=== PATIENT | male | born 1970 | race American Indian/Alaskan Native ===

== ENCOUNTER 2022-06-14 18:31 | Inpatient (IN) | payer OTHER ==
--- NOTE | 2022-06-14 18:52 | Emergency Department Report ---
ED General Adult HPI - General Chief complaint: Neuro Symptoms/Deficit Stated complaint: STROKE Time Seen by Provider: 06/14/22 18:32 Source: patient, EMS (Verbal report received from emergency medical services. EMS documentation not available at time of chart dictation ), RN notes reviewed Mode of arrival: Stretcher Limitations: Altered Mental Status, Physical Limitation, Other (Patient is a poor historian) - History of Present Illness Initial comments: The patient was evaluated in the emergency department for symptoms described in the history of present illness. He/she was evaluated in the context of the global COVID-19 pandemic, which necessitated consideration that the patient might be at risk for infection with the virus that causes COVID-19. Institutional protocols and algorithms that pertain to the evaluation of patients at risk for COVID-19 are in a state of rapid change based on information released by regulatory bodies including the CDC and federal and state organizations. These policies and algorithms were followed during the patient's care in the emergency department. Please note that these policies, procedures and recommendations changed on a rapid basis. This is a 52-year-old gentleman. He appears to have a history of diabetes, stroke, and morbid obesity. The patient presents to the ER today with EMS with an EMS articulated complaint of possible stroke alert. As per EMS, last known well time approximately 1 hour prior to ER arrival. Stroke symptoms include confusion, slurred speech, and right upper extremity and right lower extremity weakness. EMS reports patient hyperglycemic previously, apparently glucose was greater than 600. They report Accu-Chek is 270 in the field The patient is awake. He does state that he takes blood thinning medications, but he thinks he has not taken blood thinning medications in about a week. He is not certain. He also reports that he had a stroke in the past. He does not know if he has had a stroke in the past 90 days. The patient endorses a mild headache. The patient makes no complaint of additional physical pain. The patient is confused, and a poor historian. The patient is not currently accompanied by friends or family at this time who can provide additional information or collateral history. Provided phone number for family member, [phone]. Called number, nobody answered. Patient endorsed to the consulting stroke neurologist that he occasionally has recrudescence of stroke symptoms, with high blood sugar. Accu-Chek here in the ER, is 336, performed by the nurse -: minutes(s) Location: right, upper extremity, lower extremity - Related Data Allergies Allergy/AdvReac Type Severity Reaction Status Date / Time No Known Allergies Allergy Unverified 06/14/22 20:40 ED Review of Systems ROS: Stated complaint: STROKE Other details as noted in HPI Comment: Unobtainable due to pts medical conditions Neurological: weakness, numbness, confusion ED Past Medical Hx - Past Medical History Previous Medical History?: Yes Hx CVA: Yes ED Physical Exam - General Limitations: Altered Mental Status General appearance: in no apparent distress, anxious, obese - Head Head exam: Present: atraumatic, normocephalic - Eye Eye exam: Present: normal appearance, EOMI. Absent: nystagmus - ENT ENT exam: Present: normal exam, normal orophraynx, mucous membranes moist, normal external ear exam - Neck Neck exam: Present: normal inspection, full ROM. Absent: tenderness, meningismus - Respiratory Respiratory exam: Present: normal lung sounds bilaterally. Absent: respiratory distress, rhonchi, stridor, decreased breath sounds - Cardiovascular Cardiovascular Exam: Present: regular rate, normal rhythm, normal heart sounds. Absent: bradycardia, tachycardia, irregular rhythm, systolic murmur, diastolic murmur, rubs, gallop - GI/Abdominal GI/Abdominal exam: Present: soft. Absent: distended, tenderness, guarding, rebound, rigid, pulsatile mass - Rectal Rectal exam: Present: deferred - Extremities Exam Extremities exam: Present: normal inspection, full ROM (Left arm and left leg), other (2+ pulses noted in the bilateral upper and lower extremities. There is no palpable cord. negative Homans sign. Muscular compartments are soft. The pelvis is stable.). Absent: calf tenderness - Back Exam Back exam: Present: normal inspection. Absent: tenderness, CVA tenderness (R), CVA tenderness (L), paraspinal tenderness, vertebral tenderness - Neurological Exam Neurological exam: Present: altered, motor sensory deficit, other (There is no facial droop. The tongue is midline. EOMI. 5 out of 5 strength left arm and left leg. Right upper extremity drift. Right upper extremity right lower extremity weak, 4 out of 5 strength. Sensation decreased to light touch right arm and right leg) - Psychiatric Psychiatric exam: Present: anxious - Skin Skin exam: Present: warm, dry, intact, normal color. Absent: rash ED Course Vital Signs 06/14/22 19:13 Temperature 98.7 F Pulse Rate 88 Respiratory 20 Rate Blood Pressure 134/98 Blood Pressure 134/98 [Left] O2 Sat by Pulse 97 Oximetry - Reevaluation(s) Reevaluation #1: 06/14/22 18:52 Differential diagnosis, include but not limited to: Stroke, stroke mimic, electrolyte derangement, thyroid derangement, large vessel occlusion Assessment and plan: 52-year-old gentleman presenting with symptoms concerning for acute stroke syndrome. We are trying to ascertain if patient has any contraindications to tPA. Called up listed phone #[phone]. Nobody answered. Left a voicemail for call back. At this point in time, unable to obtain clear history from patient, regarding tPA contraindications. Patient emergently and administratively consented for CT scan brain, CT angiogram head and neck. Reassess. We will also discussed with stroke neurology 06/14/22 19:03 Patient gave consent for the details of his care to be discussed with Ms. Citlali Saavedra; [phone] Ms. saavedra informs us that the patient has a confirmed stroke this past March, certainly within the past 90 days, at [facility]. The patient is therefore not a tPA candidate. Stroke neurology, Dr Fernandez, agrees that tPA is not indicated and essentially contraindicated at this time. Extensive discussion had with patient and Ms. Citlali saavedra regarding rationale for withhold tPA. They have articulated understanding. Showed no large vessel occlusion or dissection be noted on CT angiogram, admit to the hospital for acute stroke 06/14/22 21:15 CT head, CT angiogram head and neck negative for bleed, dissection, and intervene of a large vessel occlusion. Laboratory studies suggest hyperglycemia, with pseudohyponatremia. Patient resting comfortably in stretcher. Aspirin and normal saline ordered. Also discussed case with [facility]y, who advised that this patient does not meet criteria for transfer for IA intervention which I agree with. Please see consultancy note. Hospital physician, Dr. Patterson to admit to IMS - Consultations Consultation #1: 06/14/22 20:08 CT angiogram head and neck reviewed and appreciated. CT scan brain reviewed and appreciated. Occlusion not noted in M1. Ambiguity regarding subsegmental branches are reviewed and appreciated. Even at this patient had a large vessel occlusion and M3 or A2, this is typically not an intervene of the lesion. I reached out to [facility] stroke neurology, Dr Hernandez Discussed the patient's history, physical, imaging studies and clinical impression. Images are also transmitted to [facility] PACS for review. He indicates that even if the patient has a large vessel occlusion and the poorly visualized M3 or A2 branches, this is not something that is intervene able. Therefore, transfer is not recommended as anticipated. The patient will remain here for stroke work-up and treatment. ED Medical Decision Making - Lab Data Result diagrams: 06/14/22 19:19 06/14/22 19:19 Vital Signs 06/14/22 19:13 Temperature 98.7 F Pulse Rate 88 Respiratory 20 Rate Blood Pressure 134/98 Blood Pressure 134/98 [Left] O2 Sat by Pulse 97 Oximetry Lab Results 06/14/22 06/14/22 06/14/22 Range/Units 19:19 19:19 19:19 WBC 7.1 (4.5-11.0) K/mm3 RBC 5.02 (3.65-5.03) M/mm3 Hgb 14.7 (11.8-15.2) gm/dl Hct 43.9 (35.5-45.6) % MCV 88 (84-94) fl MCH 29 (28-32) pg MCHC 34 (32-34) % RDW 13.7 (13.2-15.2) % Plt Count 189 (140-440) K/mm3 Lymph % (Auto) 35.6 H (13.4-35.0) % [place] % (Auto) 7.2 (0.0-7.3) % Eos % (Auto) 1.2 (0.0-4.3) % Baso % (Auto) [employer]er Lymph # (Auto) 2.5 (1.2-5.4) K/mm3 [place] # (Auto) 0.5 (0.0-0.8) K/mm3 Eos # (Auto) 0.1 (0.0-0.4) K/mm3 Baso # (Auto) 0.1 (0.0-0.1) K/mm3 Seg Neutrophils % 55.3 (40.0-70.0) % Seg Neutrophils # 3.9 (1.8-7.7) K/mm3 PT 13.1 (12.2-14.9) Sec. INR 0.90 (0.87-1.13) APTT 29.9 (24.2-36.6) Sec. Thrombin Time 15.1 (15.1-19.6) Sec. Sodium 130 L (137-145) mmol/L Potassium 5.1 H (3.6-5.0) mmol/L Chloride 96.0 L (98-107) mmol/L Carbon Dioxide 21 L (22-30) mmol/L Anion Gap 18 mmol/L BUN 11 (9-20) mg/dL Creatinine 0.8 (0.8-1.3) mg/dL Estimated GFR > 60 ml/min BUN/Creatinine Ratio 14 % Glucose 240 H (75-100) mg/dL Calcium 9.3 (8.4-10.2) mg/dL Total Bilirubin 0.40 (0.1-1.2) mg/dL AST 26 (5-40) units/L ALT 21 (7-56) units/L Alkaline Phosphatase 139 H (35-129) units/L Total Creatine Kinase 309 H (55-170) units/L CK-MB (CK-2) 2.8 (0.0-4.0) ng/mL CK-MB (CK-2) Rel Index 0.9 (0-4) Troponin T < 0.010 (0.00-0.029) ng/mL Total Protein 7.0 (6.3-8.2) g/dL Albumin 4.1 (3.9-5) g/dL Albumin/Globulin Ratio 1.4 % TSH (0.270-4.200) mlU/mL Salicylates (2.8-20.0) mg/dL Acetaminophen (10.0-30.0) ug/mL Plasma/Serum Alcohol (0-0.07) % 06/14/22 06/14/22 06/14/22 Range/Units 19:19 19:19 19:19 WBC (4.5-11.0) K/mm3 RBC (3.65-5.03) M/mm3 Hgb (11.8-15.2) gm/dl Hct (35.5-45.6) % MCV (84-94) fl MCH (28-32) pg MCHC (32-34) % RDW (13.2-15.2) % Plt Count (140-440) K/mm3 Lymph % (Auto) (13.4-35.0) % [place] % (Auto) (0.0-7.3) % Eos % (Auto) (0.0-4.3) % Baso % (Auto) Lymph # (Auto) (1.2-5.4) K/mm3 [place] # (Auto) (0.0-0.8) K/mm3 Eos # (Auto) (0.0-0.4) K/mm3 Baso # (Auto) (0.0-0.1) K/mm3 Seg Neutrophils % (40.0-70.0) % Seg Neutrophils # (1.8-7.7) K/mm3 PT (12.2-14.9) Sec. INR (0.87-1.13) APTT (24.2-36.6) Sec. Thrombin Time (15.1-19.6) Sec. Sodium (137-145) mmol/L Potassium (3.6-5.0) mmol/L Chloride (98-107) mmol/L Carbon Dioxide (22-30) mmol/L Anion Gap mmol/L BUN (9-20) mg/dL Creatinine (0.8-1.3) mg/dL Estimated GFR ml/min BUN/Creatinine Ratio % Glucose (75-100) mg/dL Calcium (8.4-10.2) mg/dL Total Bilirubin (0.1-1.2) mg/dL AST (5-40) units/L ALT (7-56) units/L Alkaline Phosphatase (35-129) units/L Total Creatine Kinase (55-170) units/L CK-MB (CK-2) (0.0-4.0) ng/mL CK-MB (CK-2) Rel Index (0-4) Troponin T (0.00-0.029) ng/mL Total Protein (6.3-8.2) g/dL Albumin (3.9-5) g/dL Albumin/Globulin Ratio % TSH 1.010 (0.270-4.200) mlU/mL Salicylates < 0.3 L (2.8-20.0) mg/dL Acetaminophen (10.0-30.0) ug/mL Plasma/Serum Alcohol < 0.01 (0-0.07) % 06/14/22 Range/Units 19:19 WBC (4.5-11.0) K/mm3 RBC (3.65-5.03) M/mm3 Hgb (11.8-15.2) gm/dl Hct (35.5-45.6) % MCV (84-94) fl MCH (28-32) pg MCHC (32-34) % RDW (13.2-15.2) % Plt Count (140-440) K/mm3 Lymph % (Auto) (13.4-35.0) % [place] % (Auto) (0.0-7.3) % Eos % (Auto) (0.0-4.3) % Baso % (Auto) Lymph # (Auto) (1.2-5.4) K/mm3 [place] # (Auto) (0.0-0.8) K/mm3 Eos # (Auto) (0.0-0.4) K/mm3 Baso # (Auto) (0.0-0.1) K/mm3 Seg Neutrophils % (40.0-70.0) % Seg Neutrophils # (1.8-7.7) K/mm3 PT (12.2-14.9) Sec. INR (0.87-1.13) APTT (24.2-36.6) Sec. Thrombin Time (15.1-19.6) Sec. Sodium (137-145) mmol/L Potassium (3.6-5.0) mmol/L Chloride (98-107) mmol/L Carbon Dioxide (22-30) mmol/L Anion Gap mmol/L BUN (9-20) mg/dL Creatinine (0.8-1.3) mg/dL Estimated GFR ml/min BUN/Creatinine Ratio % Glucose (75-100) mg/dL Calcium (8.4-10.2) mg/dL Total Bilirubin (0.1-1.2) mg/dL AST (5-40) units/L ALT (7-56) units/L Alkaline Phosphatase (35-129) units/L Total Creatine Kinase (55-170) units/L CK-MB (CK-2) (0.0-4.0) ng/mL CK-MB (CK-2) Rel Index (0-4) Troponin T (0.00-0.029) ng/mL Total Protein (6.3-8.2) g/dL Albumin (3.9-5) g/dL Albumin/Globulin Ratio % TSH (0.270-4.200) mlU/mL Salicylates (2.8-20.0) mg/dL Acetaminophen 5.0 L (10.0-30.0) ug/mL Plasma/Serum Alcohol (0-0.07) % Vital Signs 06/14/22 19:13 Temperature 98.7 F Pulse Rate 88 Respiratory 20 Rate Blood Pressure 134/98 Blood Pressure 134/98 [Left] O2 Sat by Pulse 97 Oximetry - EKG Data -: EKG Interpreted by Mn EKG shows normal: sinus rhythm Rate: normal - EKG Data When compared to previous EKG there are: previous EKG unavailable 06/14/22 19:41 The EKG is interpreted at 19: 06 Sinus rhythm, rate 89 bpm. Normal axis, normal intervals, poor R wave progression, low voltage in the lateral leads, Q waves noted in the inferior le ads. Patient denies chest pain. This is an abnormal EKG. This is not a STEMI - Radiology Data Radiology results: pending, report reviewed, image reviewed CT HEAD WITHOUT CONTRAST INDICATION / CLINICAL INFORMATION: Stroke symptoms right-sided deficits. TECHNIQUE: All CT scans at this location are performed using CT dose reduction for ALARA by means of automated exposure control. COMPARISON: None available. FINDINGS: HEMORRHAGE: No evidence of intracranial hemorrhage or extra-axial fluid collection. EXTRA-AXIAL SPACES: Cortical sulci, sylvian fissures and basilar cisterns have an unremarkable appearance. VENTRICULAR SYSTEM: The third and lateral ventricles are of normal size and configuration. CEREBRAL PARENCHYMA: No areas of abnormal brain parenchymal attenuation are identified. There is no indication of recent infarction. MIDLINE SHIFT OR HERNIATION: There is no mass effect. CEREBELLUM / BRAINSTEM: Brainstem and cerebellum have an unremarkable appearance. MIDLINE STRUCTURES:No abnormalities of the pituitary gland or pineal region are identified. INTRACRANIAL VESSELS:No abnormalities are identified on this noncontrast head CT. ORBITS: visualized portions of the orbits have an unremarkable appearance. SOFT TISSUES of HEAD: No significant abnormality. CALVARIUM: Evaluation of bone windows reveals no abnormalities. PARANASAL SINUSES / MASTOID AIR CELLS: Visualized portions of the paranasal sinuses are free from inflammatory mucosal disease. Mastoid air cells are normally pneumatized. IMPRESSION: 1. No acute intracranial abnormality. Signer Name: David Putnam MD Signed: 06/14/2022 6:36 PM Workstation Name: [email or web address] CTA neck without and with intravenous contrast material CLINICAL HISTORY: stroke sx right-sided deficit TECHNIQUE: Following acquisition of a timing bolus 0.625 mm thick contiguous axial scans were obtained from aortic arch to the skull base during rapid bolus intravenous contrast infusion. In addition to evaluation of axial source images multiplanar reconstructions were produced and reviewed for this report. 3 plane MIP reconstructions were produced and reviewed. Contrast dose report: Omnipaque 350: 100 ml, administered intravenously All CT examinations performed at this facility utilize modulated dose reduction, iterative reconstruction or weight-based dosing, as appropriate, to obtain a radiation dose which is as low as can reasonably be achieved. FINDINGS: Thoracic aorta:No abnormalities are identified along the course of the thoracic aorta..The origins of the great vessels have an unremarkable appearance. Brachiocephalic artery, left common carotid artery origin and left subclavian artery all have an unremarkable appearance. Right carotid artery:No abnormalities are seen along the course of the RCCA, at the right carotid bifurcation or along the cervical portions of the HANNAH. Left carotid artery: No abnormalities are noted along the course of the left common carotid artery, at the left carotid bifurcation or along the course of the cervical segments of the LICA. Posterior circulation:The vertebral arteries have an unremarkable appearance. Both vertebral arteries contribute to the basilar artery origin. The basilar artery has an unremarkable appearance. The degree of stenosis, if any, is determined utilizing NASCET like criteria. In this case there is no indication of hemodynamically significant stenosis at the carotid bifurcations or elsewhere. Evaluation of the nonvascular soft tissue structures reveal no abnormality. There is no indication of cervical lymphadenopathy. No abnormalities are seen along the course of the airway. Visualized portions of the parotid glands and the submandibular salivary glands have a normal appearance. Thyroid gland has a normal appearance. Evaluation of the lung apices reveals no evidence of lung nodule or infiltrate. Evaluation of the cervical spine revealed no significant abnormalities. Incidental note is made of calcification of the superior margin of the longus coli muscle just below the anterior arch of C1. IMPRESSION: 1. No indication of hemodynamically significant stenosis at the carotid bifurcations or elsewhere. CTA head with intravenous contrast CLINICAL HISTORY: stroke sx right-sided deficit TECHNIQUE: 0.625 mm thick contiguous axial scans were obtained from the skull base to the skull vertex during rapid bolus administration of intravenous contrast material. Multiplanar reconstructions were produced in the coronal and sagittal planes. In addition 3 plane MIP instructions were produced and reviewed for this report. The axial source images and reconstructed images w ere reviewed for this report. CONTRAST DOSE REPORT: Omnipaque 350: 100 ml administered intravenously. All CT scans at this location are performed using CT dose reduction for ALARA by means of automated exposure control. FINDINGS: Limitations: Patient motion artifact degrades image quality and is a limiting factor in evaluation of the M3 branches of the middle cerebral arteries and mid and distal A2 segments of the anterior cerebral arteries bilaterally. Internal carotid arteries:Gilbert, cavernous, opthalmic, clinoid and supraclinoid segments of the ICAs have an unremarkable appearance. Middle cerebral arteries:Normal and symmetrical M1 segments of the middle cerebral arteries are demonstrated. No abnormalities are seen on evaluation of the insular or opercular branches. Anterior cerebral arteries:Bilaterally symmetrical A1 segments are demonstrated. No abnormalities are seen along the course of the A2 segments or their visualized pericallosal branches. Vertebral arter ies:Bilaterally symmetrical vertebral arteries are demonstrated. Both vertebral arteries contribute to the basilar artery origin. Basilar artery:Basilar artery has an unremarkable appearance. Posterior cerebral arteries:Bilaterally symmetrical posterior cerebral arteries are identified. [place] of [place]:Not intact. see above. Dural sinuses: Dural venous sinuses are well demonstrated on this exam. There is no evidence of dural sinus thrombosis. IMPRESSION: 1. No indication of large vessel occlusion or intracranial stenosis. Signer Name: David Putnam MD Signed: 06/14/2022 6:48 PM Workstation Name: [email or web address] Critical care attestation.: If time is entered above; I have spent that time in minutes in the direct care of this critically ill patient, excluding procedure time. ED Disposition Clinical Impression: Acute ischemic stroke, Hyperglycemia, Body mass index between 30-39, adult Disposition: 09 ADMITTED INPATIENT Is pt being admited?: Yes Condition: Good - Assessment Assessment Interval: Baseline - Level of Consciousness 1a. Level of Consciousness: arousable/minor stimuli - LOC Questions 1b. LOC Questions: answers 1 question correctly - LOC Command 1c. LOC Commands: performs tasks correctly - Best Gaze 2. Best Gaze: normal - Visual 3. Visual: no visual loss - Facial Palsy 4. Facial Palsy: normal symmetrical movement - Motor Arm 5a. Motor Arm Left: no drift 5b. Motor Arm Right: drift - Motor Leg 6a. Motor Leg Left: no drift 6b. Motor Leg Right: drift - Limb Ataxia 7. Limb Ataxia: present 1 limb - Sensory 8. Sensory: mild/moderate sensory loss - Best Language 9. Best Language: mild/moderate aphasia - Dysarthria 10. Dysarthria: mild/moderate dysarthria - Extinction and Inattention 11. Extinction/Inattention: no abnormality - Scoring Total Score: 8 Stroke Severity: Moderate Stroke
--- NOTE | 2022-06-14 19:17 | Emergency Department Report ---
Blank Doc - Documentation Documentation: [facility] Consult Note # Demographics Consult Type: Acute Stroke Level 1 (0-4.5 hrs) Patient Location: Emergency Room First Name: Van Last Name: Bhupendra Date of : 1970 Age: 52 Gender: Male Facility: [facility] Time of Initial Page ( Time): 06/14/2022, 18:16 Time of Return Call ( Time): 06/14/2022, 18:16 # HPI History: hx of prior stroke, HTN, DM, no recent blood thinners. presented with slurred speech, unsteady gait, forgetfulness. Blood sugar this morning in 600s, took insulin, which brought it down to 300s and now 270. Patient notes to me that when his blood sugar is very high, he has prior stroke symptoms return. Family member confirmed that prior stroke was in march of this year. # Scores Time of exam and NIHSS (): 06/14/2022, 18:33 Level of Consciousness 1a: [0] = Alert; keenly responsive LOC Questions 1b: [0] = Answers both questions correctly LOC Commands 1c: [0] = Performs both tasks correctly Best Gaze 2: [0] = Normal Visual 3: [0] = No visual loss Facial Palsy 4: [0] = Normal symmetrical movements Motor Arm Left 5a: [0] = No drift Motor Arm Right 5b: [1] = Drift Motor Leg Left 6a: [0] = No drift Motor Leg Right 6b: [1] = Drift Limb Ataxia 7: [0] = Absent Sensory 8: [0] = Normal Best Language 9: [1] = [id number] aphasia Dysarthria 10: [0] = Normal Extinction and Inattention 11: [0] = No abnormality NIHSS Total: 3 # Data Time Head CT personally read by me (): 06/14/2022, 18:[address]: no bleed CTA Head: no large vessel occlusion preliminarily reviewed by me, please refer to radiology read for official reading CTA Neck: patent vessels preliminarily reviewed by me, please refer to radiology read for official reading # Assessment Impression: right sided weakness, aphasia hyperglycemia recent stroke in march, not a candidate for tpa. # Plan Thrombolytic/Intervention: NOT IV Thrombolysis or IA Intervention candidate Thrombolytic Dosing: IV alteplase 0.9 mg/kg, max dose 90 mg; 10% of dose given over 1 minute IVP, remaining 90% given as infusion over 1 hour Thrombolytic Exclusion (< 3 hour window): stroke within 3 months Intraarterial Exclusion: other CTA read pending Target Blood Pressure: SBP < 220 DBP < 105 Labs: CBC comprehensive metabolic panel lipid panel troponin TSH urine drug screen ua Imaging: (urgency: routine): MRI Brain without contrast Medication: aspirin 325 mg daily DVT Prophylaxis: chemical DVT prophylaxis Other: If patient has any neurological deterioration please call me back immediately I have discussed my recommendations with the referring provider Additional Recommendations: mri brain wo contrast Disposition: admit # Logistics Telemedicine: Interactive 2 way audio and visual telecommunication technology was utilized during this visit # Demographics First Name: Van Last Name: Bhupendra Facility: [facility]
--- NOTE | 2022-06-14 19:40 | Cat Scan Report ---
CT HEAD WITHOUT CONTRAST INDICATION / CLINICAL INFORMATION: Stroke symptoms right-sided deficits. TECHNIQUE: All CT scans at this location are performed using CT dose reduction for ALARA by means of automated e xposure control. COMPARISON: None available. FINDINGS: HEMORRHAGE: No evidence of intracranial hemorrhage or extra-axial fluid collection. EXTRA-AXIAL SPACES: Cortical sulci, sylvian fissures and basilar cisterns have an unremarkable appear ance. VENTRICULAR SYSTEM: The third and lateral ventricles are of normal size and configuration. CEREBRAL PARENCHYMA: No areas of abnormal brain parenchymal attenuation are identified. There is no i ndication of recent infarction. MIDLINE SHIFT OR HERNIATION: There is no mass effect. CEREBELLUM / BRAINSTEM: Brainstem and cerebellum have an unremarkable appearance. MIDLINE STRUCTURES:No abnormalities of the pituitary gland or pineal region are identified. INTRACRANIAL VESSELS:No abnormalities are identified on this noncontrast head CT. ORBITS: visualized portions of the orbits have an unremarkable appearance. SOFT TISSUES of HEAD: No significant abnormality. CALVARIUM: Evaluation of bone windows reveals no abnormalities. PARANASAL SINUSES / MASTOID AIR CELLS: Visualized portions of the paranasal sinuses are free from inf lammatory mucosal disease. Mastoid air cells are normally pneumatized. IMPRESSION: 1. No acute intracranial abnormality. Signer Name: David Putnam MD Signed: 06/14/2022 7:36 PM Workstation Name: [id number]
--- NOTE | 2022-06-14 19:53 | Cat Scan Report ---
CTA neck without and with intravenous contrast material CLINICAL HISTORY: stroke sx right-sided deficit TECHNIQUE: Following acquisition of a timing bolus 0.625 mm thick contiguous axial scans were obtained from aort ic arch to the skull base during rapid bolus intravenous contrast infusion. In addition to evaluation of axial source images multiplanar reconstructions were produced and reviewed for this report. 3 mercy ne MIP reconstructions were produced and reviewed. Contrast dose report: Omnipaque 350: 100 ml, administered intravenously All CT examinations performed at this facility utilize modulated dose reduction, iterative reconstruc tion or weight-based dosing, as appropriate, to obtain a radiation dose which is as low as can reason ably be achieved. FINDINGS: Thoracic aorta:No abnormalities are identified along the course of the thoracic aorta..The origins of the great vessels have an unremarkable appearance. Brachiocephalic artery, left common carotid arter y origin and left subclavian artery all have an unremarkable appearance. Right carotid artery:No abnormalities are seen along the course of the RCCA, at the right carotid bif urcation or along the cervical portions of the HANNAH. Left carotid artery: No abnormalities are noted along the course of the left common carotid artery, a t the left carotid bifurcation or along the course of the cervical segments of the LICA. Posterior circulation:The vertebral arteries have an unremarkable appearance. Both vertebral arteries contribute to the basilar artery origin. The basilar artery has an unremarkable appearance. The degree of stenosis, if any, is determined utilizing NASCET like criteria. In this case there is no indication of hemodynamically significant stenosis at the carotid bifurcations or elsewhere. Evaluation of the nonvascular soft tissue structures reveal no abnormality. There is no indication of cervical lymphadenopathy. No abnormalities are seen along the course of the airway. Visualized porti ons of the parotid glands and the submandibular salivary glands have a normal appearance. Thyroid gla nd has a normal appearance. Evaluation of the lung apices reveals no evidence of lung nodule or infil trate. Evaluation of the cervical spine revealed no significant abnormalities. Incidental note is made of ca lcification of the superior margin of the longus coli muscle just below the anterior arch of C1. IMPRESSION: 1. No indication of hemodynamically significant stenosis at the carotid bifurcations or elsewhere. CTA head with intravenous contrast CLINICAL HISTORY: stroke sx right-sided deficit TECHNIQUE: 0.625 mm thick contiguous axial scans were obtained from the skull base to the skull vertex during r apid bolus administration of intravenous contrast material. Multiplanar reconstructions were produced in the coronal and sagittal planes. In addition 3 plane MIP instructions were produced and reviewed for this report. The axial source images and reconstructed images were reviewed for this report. CONTRAST DOSE REPORT: Omnipaque 350: 100 ml administered intravenously. All CT scans at this location are performed using CT dose reduction for ALARA by means of automated e xposure control. FINDINGS: Limitations: Patient motion artifact degrades image quality and is a limiting factor in evaluation of the M3 branches of the middle cerebral arteries and mid and distal A2 segments of the anterior cereb ral arteries bilaterally. Internal carotid arteries:Gilbert, cavernous, opthalmic, clinoid and supraclinoid segments of the ICAs have an unremarkable appearance. Middle cerebral arteries:Normal and symmetrical M1 segments of the middle cerebral arteries are demon strated. No abnormalities are seen on evaluation of the insular or opercular branches. Anterior cerebral arteries:Bilaterally symmetrical A1 segments are demonstrated. No abnormalities are seen along the course of the A2 segments or their visualized pericallosal branches. Vertebral arteries:Bilaterally symmetrical vertebral arteries are demonstrated. Both vertebral arteri es contribute to the basilar artery origin. Basilar artery:Basilar artery has an unremarkable appearance. Posterior cerebral arteries:Bilaterally symmetrical posterior cerebral arteries are identified. [place] of [place]:Not intact. see above. Dural sinuses: Dural venous sinuses are well demonstrated on this exam. There is no evidence of dural sinus thrombosis. IMPRESSION: 1. No indication of large vessel occlusion or intracranial stenosis. Signer Name: David Putnam MD Signed: 06/14/2022 7:48 PM Workstation Name: [id number]
[2022-06-14] MEDS ORDERED: ASPIRIN 81 MG TAB CHEW PO ONE (20:09)
[2022-06-14 20:14] LABS: Basophils # (Auto) 0.1 K/mm3 (0.0-0.1); Eosinophils # (Auto) 0.1 K/mm3 (0.0-0.4); Eosinophils % (Auto) 1.2 % (0.0-4.3); Hematocrit 43.9 % (35.5-45.6); Hemoglobin 14.7 gm/dl (11.8-15.2); Lymphocytes # (Auto) 2.5 K/mm3 (1.2-5.4); Lymphocytes % (Auto) 35.6 % (13.4-35.0); Mean Corpuscular HGB Conc 34 % (32-34); Mean Corpuscular Volume 88 fl (84-94); Monocytes # (Auto) 0.5 K/mm3 (0.0-0.8); Monocytes % (Auto) 7.2 % (0.0-7.3); Platelet Count 189 K/mm3 (140-440); Red Blood Count 5.02 M/mm3 (3.65-5.03); Red Cell Distribution Width 13.7 % (13.2-15.2)
[2022-06-14 20:15] LABS: Creatine Kinase MB 2.8 ng/mL (0.0-4.0); INR 0.9 (0.87-1.13)
[2022-06-14 20:16] LABS: Alanine Aminotransferase 21 units/L (7-56); Albumin 4.1 g/dL (3.9-5); BUN/Creatinine Ratio 14; Blood Urea Nitrogen 11 mg/dL (9-20); Calcium 9.3 mg/dL (8.4-10.2); Hemolysis Index 116; Partial Thromboplastin Time 29.9 Sec. (24.2-36.6)
[2022-06-14 20:22] LABS: Thrombin Time 15.1 Sec. (15.1-19.6)
[2022-06-14] MEDS ORDERED: SODIUM CHLORIDE 0.9% 500 ML 500 ML IV ONE (21:15)
[2022-06-14] MEDS ORDERED: METOCLOPRAMIDE 10 MG/2 ML INJ IV PRN (21:45)
[2022-06-14] MEDS ORDERED: ACETAMINOPHEN 325 MG TAB PO PRN ×2 (21:45→21:54)
[2022-06-14] MEDS ORDERED: DEXTROSE 50% IN WATER (25GM) 50 ML SYRINGE IV PRN (21:54)
[2022-06-14] MEDS ORDERED: METOCLOPRAMIDE 10 MG TAB PO PRN (21:54)
[2022-06-14] MEDS ORDERED: MORPHINE 4 MG/1 ML INJ IV PRN ×2 (21:54)
[2022-06-14] MEDS ORDERED: ONDANSETRON 4 MG/2 ML INJ IV PRN ×2 (21:54)
[2022-06-14] MEDS ORDERED: PROMETHAZINE 25 MG RECT SUPP PR PRN (21:54)
[2022-06-14] MEDS ORDERED: ACETAMINOPHEN 650 MG RECT SUPP PR PRN (21:54)
[2022-06-14] MEDS ORDERED: MORPHINE 2 MG/1 ML INJ IV PRN ×2 (21:54)
[2022-06-14] MEDS ORDERED: MAGNESIUM HYDROXIDE (MOM) ORAL LIQD UDC PO PRN ×2 (21:54)
--- NOTE | 2022-06-14 22:12 | History and Physical Report ---
History of Present Illness Date of examination: 06/14/22 Date of admission: 06/14/2022 Chief complaint: 06/14/2022 History of present illness: 52-year-old male with known history of diabetes mellitus, CVA, morbid obesity and hypertension presenting to the emergency room today via EMS with complaints of slurred speech, confusion, and right-sided weakness which started about 1 hour prior to reporting to the emergency room today. Patient states whenever his blood sugar is elevated he sometimes has 2 symptoms. Initial blood sugar was said to be about 600 prior to reporting to the emergency room. Subsequent blood sugar recheck was 270. Patient states he has been having some mild headache but denies any blurry vision. Denies any facial asymmetry. He denies any chest pain or shortness of breath, no nausea vomiting and no abdominal pain. Work-up in the emergency room today, CT scan of the head, CTA of the head and neck were unremarkable. Labs significant for mild hyponatremia 130 and blood glucose of 240. Patient was also evaluated by the tele-neurologist and recommendation is to have patient worked up for CVA. Past History Past Medical History: diabetes, stroke Past Surgical History: No surgical history Social history: no significant social history Family history: no significant family history Medications and Allergies Allergies Allergy/AdvReac Type Severity Reaction Status Date / Time No Known Allergies Allergy Unverified 06/14/22 20:40 Active Meds: Active Medications Acetaminophen (Acetaminophen 325 Mg Tab) 650 mg PO Q4H PRN PRN Reason: Pain MILD(1-3)/Fever >100.5/BERNARD Acetaminophen (Acetaminophen 325 Mg Tab) 650 mg PO Q4H PRN PRN Reason: Pain MILD(1-3)/Fever >100.5/BERNARD Acetaminophen (Acetaminophen 650 Mg Rect Supp) 650 mg DE Q4H PRN PRN Reason: Pain, Mild (1-3) Aspirin (Aspirin 325 Mg Tab) 325 mg PO QDAY ROWENA Atorvastatin Calcium (Atorvastatin 40 Mg Tab) 40 mg PO QHS ROWENA Bisacodyl (Bisacodyl 10 Mg Rect Supp) 10 mg DE QDAY PRN PRN Reason: Constipation Dextrose (Dextrose 50% In Water (25gm) 50 Ml Syringe) 50 ml IV Q30MIN PRN; Protocol PRN Reason: Hypoglycemia Dextrose (Dextrose 50% In Water (25gm) 50 Ml Syringe) 50 ml IV Q30MIN PRN; Protocol PRN Reason: Hypoglycemia Heparin Sodium (Porcine) (Heparin 5,000 Unit/1 Ml Vial) 5,000 unit SUB-Q Q8HR ROWENA Insulin Human Lispro (Insulin Lispro 100 Unit/Ml) 0 unit SUB-Q ACHS ROWENA; Pro tocol Magnesium Hydroxide (Magnesium Hydroxide (Mom) Oral Liqd Udc) 30 ml PO Q4H PRN PRN Reason: Constipation Magnesium Hydroxide (Magnesium Hydroxide (Mom) Oral Liqd Udc) 30 ml PO Q4H PRN PRN Reason: Constipation Metoclopramide HCl (Metoclopramide 10 Mg/2 Ml Inj) 10 mg IV Q6H PRN PRN Reason: Nausea And Vomiting Metoclopramide HCl (Metoclopramide 10 Mg Tab) 10 mg PO Q6H PRN PRN Reason: Nausea And Vomiting Morphine Sulfate (Morphine 2 Mg/1 Ml Inj) 2 mg IV Q4H PRN PRN Reason: Pain, Moderate (4-6) Morphine Sulfate (Morphine 4 Mg/1 Ml Inj) 4 mg IV Q4H PRN PRN Reason: Pain , Severe (7-10) Morphine Sulfate (Morphine 2 Mg/1 Ml Inj) 2 mg IV Q4H PRN PRN Reason: Pain, Moderate (4-6) Morphine Sulfate (Morphine 4 Mg/1 Ml Inj) 4 mg IV Q4H PRN PRN Reason: Pain , Severe (7-10) Ondansetron HCl (Ondansetron 4 Mg/2 Ml Inj) 4 mg IV Q8H PRN PRN Reason: Nausea And Vomiting Ondansetron HCl (Ondansetron 4 Mg/2 Ml Inj) 4 mg IV Q8H PRN PRN Reason: Nausea And Vomiting Promethazine HCl (Promethazine 25 Mg Rect Supp) 25 mg DE Q6H PRN PRN Reason: Nausea And Vomiting Sodium Chloride (Sodium Chloride 0.9% 10 Ml Flush Syringe) 10 ml IV BID ROWENA Sodium Chloride (Sodium Chloride 0.9% 10 Ml Flush Syringe) 10 ml IV PRN PRN PRN Reason: LINE FLUSH Sodium Chloride (Sodium Chloride 0.9% 10 Ml Flush Syringe) 10 ml IV BID ROWENA Sodium Chloride (Sodium Chloride 0.9% 10 Ml Flush Syringe) 10 ml IV PRN PRN PRN Reason: LINE FLUSH Sodium Chloride (Sodium Chloride 0.9% 10 Ml Flush Syringe) 10 ml INJ PRN PRN PRN Reason: LINE FLUSH Review of Systems Constitutional: no fever, no chills Ears, nose, mouth and throat: no nasal congestion, no sore throat Cardiovascular: no chest pain, no palpitations Respiratory: no cough, no shortness of breath Gastrointestinal: no abdominal pain, no nausea, no vomiting, no diarrhea Genitourinary Male: no dysuria, no hematuria, no flank pain Musculoskeletal: no neck pain, no low back pain Integumentary: no rash, no pruritis Neurological: change in speech, no headaches, no confusion Psychiatric: no anxiety, no depression Endocrine: no polyphagia, no polydipsia, no polyuria, no nocturia Exam - Constitutional Vitals: Temp Pulse Resp BP Pulse Ox 98.7 F 88 20 134/98 97 06/14/22 19:13 06/14/22 19:13 06/14/22 19:13 06/14/22 19:13 06/14/22 19:13 General appearance: Present: no acute distress, well-nourished - EENT Eyes: Present: PERRL, EOM intact. Absent: scleral icterus ENT: hearing intact, clear oral mucosa, dentition normal - Neck Neck: Present: supple, normal ROM - Respiratory Respiratory effort: normal Respiratory: bilateral: CTA - Cardiovascular Rhythm: regular Heart Sounds: Present: S1 & S2. Absent: gallop, systolic murmur, diastolic murmur, rub, click - Extremities Extremities: no ischemia, pulses intact, pulses symmetrical, No edema, normal temperature, normal color, Full ROM Peripheral Pulses: within normal limits - Abdominal General gastrointestinal: Present: soft, non-tender, non-distended, normal bowel sounds. Absent: mass - Integumentary Integumentary: Present: clear, warm, dry, normal turgor. Absent: rash - Musculoskeletal Musculoskeletal: strength equal bilaterally - Psychiatric Psychiatric: appropriate mood/affect, intact judgment & insight, memory intact, cooperative - Neurologic Neurologic: CNII-XII intact, no focal deficits, moves all extremities HEART Score - HEART Score Troponin: Troponin T < 0.010 ng/mL (0.00-0.029) 06/14/22 19:19 Results - Labs CBC & Chem 7: 06/14/22 19:19 06/14/22 19:19 Labs: Abnormal lab results 06/14/22 06/14/22 06/14/22 Range/Units 19:19 19:19 19:19 Lymph % (Auto) 35.6 H (13.4-35.0) % Sodium 130 L (137-145) mmol/L Potassium 5.1 H (3.6-5.0) mmol/L Chloride 96.0 L (98-107) mmol/L Carbon Dioxide 21 L (22-30) mmol/L Glucose 240 H (75-100) mg/dL Alkaline Phosphatase 139 H (35-129) units/L Total Creatine Kinase 309 H (55-170) units/L Salicylates < 0.3 L (2.8-20.0) mg/dL Acetaminophen (10.0-30.0) ug/mL 06/14/22 Range/Units 19:19 Lymph % (Auto) (13.4-35.0) % Sodium (137-145) mmol/L Potassium (3.6-5.0) mmol/L Chloride (98-107) mmol/L Carbon Dioxide (22-30) mmol/L Glucose (75-100) mg/dL Alkaline Phosphatase (35-129) units/L Total Creatine Kinase (55-170) units/L Salicylates (2.8-20.0) mg/dL Acetaminophen 5.0 L (10.0-30.0) ug/mL Assessment and Plan Assessment: 1.Slurred Speech/Right sided weakness 2.Hyperglycemia 3.Obesity 4.Hypertension Plan: 1. Patient admitted and placed on telemetry. We will schedule for MRI of the brain, carotid Doppler and echocardiogram. 2. We will request neurology evaluation and recommendations. 3. Patient placed on sliding scale insulin. We will monitor Accu-Cheks closely. 4. We will request physical therapy evaluation. 5. We will resume routine home medications. Commenced on daily aspirin and statin. We will monitor vital signs closely. DVT Prophylaxis: SQ Heparin Code Status: Full Code
[2022-06-15 04:52] LABS: Basophils % (Auto) 0.5 % (0.0-1.8); Eosinophils # (Auto) 0.1 K/mm3 (0.0-0.4); Eosinophils % (Auto) 1.6 % (0.0-4.3); Hemoglobin 14.1 gm/dl (11.8-15.2); Lymphocytes # (Auto) 2.6 K/mm3 (1.2-5.4); Lymphocytes % (Auto) 45.2 % (13.4-35.0); Mean Corpuscular HGB Conc 33 % (32-34); Mean Corpuscular Volume 88 fl (84-94); Monocytes # (Auto) 0.5 K/mm3 (0.0-0.8); Monocytes % (Auto) 9.2 % (0.0-7.3); Platelet Count 176 K/mm3 (140-440); Red Blood Count 4.91 M/mm3 (3.65-5.03); Red Cell Distribution Width 13.5 % (13.2-15.2)
[2022-06-15 05:11] LABS: BUN/Creatinine Ratio 10; Blood Urea Nitrogen 9 mg/dL (9-20); Calcium 8.9 mg/dL (8.4-10.2); Hemolysis Index 6
[2022-06-15] MEDS: INSULIN LISPRO 100 UNIT/ML SUB-Q SCH ×5 (06:31→21:09)
[2022-06-15] MEDS: HEPARIN 5,000 UNIT/1 ML VIAL SUB-Q SCH ×3 (07:10→21:08)
[2022-06-15] MEDS ORDERED: LORazepam 2 MG/ML VIAL IV PRN (10:00)
[2022-06-15] MEDS: ASPIRIN 325 MG TAB PO SCH (10:02)
--- NOTE | 2022-06-15 10:39 | Electrocardiograph Report ---
[facility] Test Date: 2022-06-14 Test Time: 19:06:10 Pat Name: APRIL VOGEL Department: Room: A460 1 Gender: M Escrow Clerk: [phone] : 1970 Requested By: JUAN ALBERTO AWAD Order Number: [id number] Reading MD: Fifi Obrien Measurements Intervals [place] Rate: 89 P: 57 AK: 169 QRS: 55 QRSD: 71 T: 19 QT: 330 QTc: 401 Interpretive Statements Sinus rhythm Low voltage, precordial leads Abnrm R prog, consider ASMI or lead placement No previous ECG available for comparison Electronically Signed On 06-15-2022 10:38:23 EDT by Fifi Obrien
--- NOTE | 2022-06-15 10:48 | Progress Note ---
Assessment and Plan Assessment and plan: 52-year-old male with known history of diabetes mellitus, CVA, morbid obesity and hypertension presenting to the emergency room today via EMS with complaints of slurred speech, confusion, and right-sided weakness which started about 1 hour prior to reporting to the emergency room. Work-up in the emergency room with CT scan of the head, CTA of the head and neck unremarkable. Labs significant for mild hyponatremia 130 and blood glucose of 240. Patient was also evaluated by the tele-neurologist and recommendation is to have patient worked up for CVA. CVA Diabetes mellitus type 2, uncontrolled Obesity Hypertension 06/15/2022. Follow-up MRI, carotid Dopplers and echocardiogram. Neurology consultation pending. Continue Accu-Cheks and sliding scale insulin. PT/OT/ST evaluations. Continue secondary prevention with aspirin and statin. History Interval history: No new issues overnight Hospitalist Physical - Constitutional Vitals: Temp Pulse Resp BP Pulse Ox 97.8 F 78 18 115/78 91 06/15/22 07:29 06/15/22 07:29 06/15/22 07:29 06/15/22 07:29 06/15/22 07:29 General appearance: Present: no acute distress, well-nourished - EENT Eyes: Present: PERRL, EOM intact ENT: hearing intact, clear oral mucosa, dentition normal - Neck Neck: Present: supple, normal ROM - Respiratory Respiratory effort: normal Respiratory: bilateral: CTA - Cardiovascular Rhythm: regular Heart Sounds: Present: S1 & S2. Absent: gallop, rub - Extremities Extremities: no ischemia, No edema, Full ROM - Abdominal General gastrointestinal: soft, non-tender, non-distended, normal bowel sounds - Integumentary Integumentary: Present: clear, warm, dry - Neurologic Neurologic: CNII-XII intact, moves all extremities HEART Score - HEART Score Troponin: Troponin T < 0.010 ng/mL (0.00-0.029) 06/14/22 19:19 Results - Labs CBC & Chem 7: 06/15/22 04:25 06/15/22 04:25 Labs: Laboratory Last Values WBC 5.7 K/mm3 (4.5-11.0) 06/15/22 04:25 RBC 4.91 M/mm3 (3.65-5.03) 06/15/22 04:25 Hgb 14.1 gm/dl (11.8-15.2) 06/15/22 04:25 Hct 43.0 % (35.5-45.6) 06/15/22 04:25 MCV 88 fl (84-94) 06/15/22 04:25 MCH 29 pg (28-32) 06/15/22 04:25 MCHC 33 % (32-34) 06/15/22 04:25 RDW 13.5 % (13.2-15.2) 06/15/22 04:25 Plt Count 176 K/mm3 (140-440) 06/15/22 04:25 Lymph % (Auto) 45.2 % (13.4-35.0) H 06/15/22 04:25 Ashley % (Auto) 9.2 % (0.0-7.3) H 06/15/22 04:25 Eos % (Auto) 1.6 % (0.0-4.3) 06/15/22 04:25 Baso % (Auto) 0.5 % (0.0-1.8) 06/15/22 04:25 Lymph # (Auto) 2.6 K/mm3 (1.2-5.4) 06/15/22 04:25 Ashley # (Auto) 0.5 K/mm3 (0.0-0.8) 06/15/22 04:25 Eos # (Auto) 0.1 K/mm3 (0.0-0.4) 06/15/22 04:25 Baso # (Auto) 0.0 K/mm3 (0.0-0.1) 06/15/22 04:25 Seg Neutrophils % 43.5 % (40.0-70.0) 06/15/22 04:25 Seg Neutrophils # 2.5 K/mm3 (1.8-7.7) 06/15/22 04:25 PT 13.1 Sec. (12.2-14.9) 06/14/22 19:19 INR 0.90 (0.87-1.13) 06/14/22 19:19 APTT 29.9 Sec. (24.2-36.6) 06/14/22 19:19 Thrombin Time 15.1 Sec. (15.1-19.6) 06/14/22 19:19 Sodium 138 mmol/L (137-145) D 06/15/22 04:25 Potassium 4.1 mmol/L (3.6-5.0) 06/15/22 04:25 Chloride 100.5 mmol/L (98-107) 06/15/22 04:25 Carbon Dioxide 26 mmol/L (22-30) 06/15/22 04:25 Anion Gap 16 mmol/L 06/15/22 04:25 BUN 9 mg/dL (9-20) 06/15/22 04:25 Creatinine 0.9 mg/dL (0.8-1.3) 06/15/22 04:25 Estimated GFR > 60 ml/min 06/15/22 04:25 BUN/Creatinine Ratio 10 % 06/15/22 04:25 Glucose 195 mg/dL (75-100) H 06/15/22 04:25 POC Glucose 203 mg/dL (70-105) H 06/15/22 07:30 Calcium 8.9 mg/dL (8.4-10.2) 06/15/22 04:25 Total Bilirubin 0.40 mg/dL (0.1-1.2) 06/14/22 19:19 AST 26 units/L (5-40) 06/14/22 19:19 ALT 21 units/L (7-56) 06/14/22 19:19 Alkaline Phosphatase 139 units/L (35-129) H 06/14/22 19:19 Total Creatine Kinase 309 units/L (55-170) H 06/14/22 19:19 CK-MB (CK-2) 2.8 ng/mL (0.0-4.0) 06/14/22 19:19 CK-MB (CK-2) Rel Index 0.9 (0-4) 06/14/22 19:19 Troponin T < 0.010 ng/mL (0.00-0.029) 06/14/22 19:19 Total Protein 7.0 g/dL (6.3-8.2) 06/14/22 19:19 Albumin 4.1 g/dL (3.9-5) 06/14/22 19:19 Albumin/Globulin Ratio 1.4 % 06/14/22 19:19 TSH 1.010 mlU/mL (0.270-4.200) 06/14/22 19:19 Salicylates < 0.3 mg/dL (2.8-20.0) L 06/14/22 19:19 Acetaminophen 5.0 ug/mL (10.0-30.0) L 06/14/22 19:19 Plasma/Serum Alcohol < 0.01 % (0-0.07) 06/14/22 19:19 Active Medications - Current Medications Current Medications: Generic Name Dose Route Start Last Admin Trade Name Freq PRN Reason Stop Dose Admin Acetaminophen 650 mg 06/14/22 21:54 Acetaminophen 325 Mg Tab PO Q4H PRN Pain MILD(1-3)/Fever >100.5/BERNARD Acetaminophen 650 mg 06/14/22 21:54 Acetaminophen 650 Mg Rect Supp NJ Q4H PRN Pain, Mild (1-3) Aspirin 325 mg 06/15/22 10:00 06/15/22 10:02 Aspirin 325 Mg Tab PO 325 mg QDAY ROWENA Administration Atorvastatin Calcium 40 mg 06/14/22 22:00 06/14/22 22:00 Atorvastatin 40 Mg Tab PO 40 mg QHS ROWENA Administration Bisacodyl 10 mg 06/14/22 21:54 Bisacodyl 10 Mg Rect Supp NJ QDAY PRN Constipation Dextrose 50 ml 06/14/22 21:54 Dextrose 50% In Water (25gm) 50 Ml Syringe IV Q30MIN PRN Hypoglycemia Protocol Heparin Sodium (Porcine) 5,000 unit 06/15/22 06:00 06/15/22 07:10 Heparin 5,000 Unit/1 Ml Vial SUB-Q Not Given Q8HR [facility] Insulin Human Lispro 0 unit 06/14/22 22:00 06/15/22 10:02 Insulin Lispro 100 Unit/Ml SUB-Q 3 unit ACHS ROWENA Administration Protocol Lorazepam 1 mg 06/15/22 10:00 Lorazepam 2 Mg/Ml Vial IV Q4HR PRN Agitation Magnesium Hydroxide 30 ml 06/14/22 21:54 Magnesium Hydroxide (Mom) Oral Liqd Udc PO Q4H PRN Constipation Metoclopramide HCl 10 mg 06/14/22 21:45 Metoclopramide 10 Mg/2 Ml Inj IV Q6H PRN Nausea And Vomiting Metoclopramide HCl 10 mg 06/14/22 21:54 Metoclopramide 10 Mg Tab PO Q6H PRN Nausea And Vomiting Morphine Sulfate 2 mg 06/14/22 21:54 Morphine 2 Mg/1 Ml Inj IV Q4H PRN Pain, Moderate (4-6) Morphine Sulfate 4 mg 06/14/22 21:54 Morphine 4 Mg/1 Ml Inj IV Q4H PRN Pain , Severe (7-10) Ondansetron HCl 4 mg 06/14/22 21:54 Ondansetron 4 Mg/2 Ml Inj IV Q8H PRN Nausea And Vomiting Promethazine HCl 25 mg 06/14/22 21:54 Promethazine 25 Mg Rect Supp NJ Q6H PRN Nausea And Vomiting Sodium Chloride 10 ml 06/14/22 22:00 06/15/22 10:02 Sodium Chloride 0.9% 10 Ml Flush Syringe IV 10 ml BID ROWENA Administration Sodium Chloride 10 ml 06/14/22 21:54 Sodium Chloride 0.9% 10 Ml Flush Syringe IV PRN PRN LINE FLUSH
[2022-06-15] MEDS ORDERED: LORazepam 1 MG TAB PO NR (12:47)
--- NOTE | 2022-06-15 13:37 | Vascular Lab Report ---
DUPLEX DOPPLER ULTRASOUND CAROTID, BILATERAL INDICATION / CLINICAL INFORMATION: stroke. COMPARISON: CTA neck performed yesterday. FINDINGS: RIGHT CAROTID: - PLAQUE ESTIMATE (%): None. - CCA velocity: 101 cm/sec. - ICA peak systolic velocity: 72 cm/sec. - ICA/CCA PSV Ratio: Less than 2. Right Vertebral Artery: Antegrade flow. LEFT CAROTID: - PLAQUE ESTIMATE (%): None. - CCA velocity: 117 cm/sec. - ICA peak systolic velocity: 64 cm/sec. - ICA/CCA PSV Ratio: Less than 2. Left Vertebral Artery: Antegrade flow. IMPRESSION: 1. Right Internal Carotid Artery: Normal. No stenosis. 2. Left Internal Carotid Artery: Normal. No stenosis. Velocity criteria are extrapolated from diameter data as defined by the Society of Radiologists in Ul trasound Consensus Conference, Radiology 2003; 229;340-346. NO STENOSIS (NORMAL) - Plaque = none; ICA PSV < 125 cm/sec; ICA/CCA PSV Ratio < 2.0 <50% STENOSIS - Plaque < 50%; ICA PSV < 125 cm/sec; ICA/CCA PSV Ratio < 2.0 50-69% STENOSIS - Plaque > 50%; ICA PSV = 125-230 cm/sec; ICA/CCA PSV Ratio = 2.0-4.0 >70% BUT <100% STENOSIS - Plaque > 50%; ICA PSV > 230 cm/sec; ICA/CCA PSV Ratio > 4.0 NEAR OCCLUSION - Plaque = visible lumen; ICA PSV = high/low/none; ICA/CCA PSV Ratio = variable TOTAL OCCLUSION - Plaque = no lumen; ICA PSV = none; ICA/CCA PSV Ratio = N/A Scribed by: Doretha Noe RDMS, RVT, KEI Scribed: 06/15/2022 11:55 AM I have reviewed the images, agree with this report, and edited this report as needed. Signer Name: Faustino Landrum MD Signed: 06/15/2022 1:33 PM Workstation Name: [id number]
--- NOTE | 2022-06-15 14:33 | Consultation ---
History of Present Illness Consult date: 06/15/22 Reason for Consult: CVA Chief complaint: Confusion, Tired History of present illness: 52 yo male, right-handed, with dm, cva with residual right-sided weakness, tobacco abuse, who presents with noted elevated blood glucose levels. Notes that initially upon ED presentation he felt confused with generalized weakness w ith slurred speech and "really tired". Notes that he suffers the same set of symptoms whenever "my sugar is high" in the past. Notes improvement since admission. Past History Past Medical History: diabetes, stroke Past Surgical History: No surgical history, Other (hernia surgery) Social history: no significant social history, smoking Family history: no significant family history Medications and Allergies Allergies Allergy/AdvReac Type Severity Reaction Status Date / Time No Known Allergies Allergy Unverified 06/14/22 20:40 Home Medications Medication Instructions Recorded Confirmed Last Taken Type Insulin Glargine [Lantus VIAL] 35 units SQ DAILY 06/15/22 06/15/22 06/13/22 History Lipitor 40 mg PO HS 06/15/22 06/15/22 06/13/22 History Active Meds: Active Medications Acetaminophen (Acetaminophen 325 Mg Tab) 650 mg PO Q4H PRN PRN Reason: Pain MILD(1-3)/Fever >100.5/BERNARD Acetaminophen (Acetaminophen 650 Mg Rect Supp) 650 mg CO Q4H PRN PRN Reason: Pain, Mild (1-3) Aspirin (Aspirin 325 Mg Tab) 325 mg PO QDAY [facility] Last Admin: 06/15/22 10:02 Dose: 325 mg Atorvastatin Calcium (Atorvastatin 40 Mg Tab) 40 mg PO QHS [facility] Last Admin: 06/14/22 22:00 Dose: 40 mg Bisacodyl (Bisacodyl 10 Mg Rect Supp) 10 mg CO QDAY PRN PRN Reason: Constipation Dextrose (Dextrose 50% In Water (25gm) 50 Ml Syringe) 50 ml IV Q30MIN PRN; Protocol PRN Reason: Hypoglycemia Heparin Sodium (Porcine) (Heparin 5,000 Unit/1 Ml Vial) 5,000 unit SUB-Q Q8HR [facility] Last Admin: 06/15/22 13:08 Dose: 5,000 unit Insulin Glargine (Insulin Glargine 100 Units/Ml) 35 units SUB-Q DAILY [facility] Insulin Human Lispro (Insulin Lispro 100 Unit/Ml) 0 unit SUB-Q ACHS ROWENA; Protocol Last Admin: 06/15/22 12:25 Dose: 4 unit Lorazepam (Lorazepam 2 Mg/Ml Vial) 1 mg IV Q4HR PRN PRN Reason: Agitation Lorazepam (Lorazepam 1 Mg Tab) 1 mg PO ONCE NR Stop: 06/15/22 15:00 Magnesium Hydroxide (Magnesium Hydroxide (Mom) Oral Liqd Udc) 30 ml PO Q4H PRN PRN Reason: Constipation Metoclopramide HCl (Metoclopramide 10 Mg/2 Ml Inj) 10 mg IV Q6H PRN PRN Reason: Nausea And Vomiting Metoclopramide HCl (Metoclopramide 10 Mg Tab) 10 mg PO Q6H PRN PRN Reason: Nausea And Vomiting Morphine Sulfate (Morphine 2 Mg/1 Ml Inj) 2 mg IV Q4H PRN PRN Reason: Pain, Moderate (4-6) Morphine Sulfate (Morphine 4 Mg/1 Ml Inj) 4 mg IV Q4H PRN PRN Reason: Pain , Severe (7-10) Ondansetron HCl (Ondansetron 4 Mg/2 Ml Inj) 4 mg IV Q8H PRN PRN Reason: Nausea And Vomiting Promethazine HCl (Promethazine 25 Mg Rect Supp) 25 mg CO Q6H PRN PRN Reason: Nausea And Vomiting Sodium Chloride (Sodium Chloride 0.9% 10 Ml Flush Syringe) 10 ml IV BID [facility] Last Admin: 06/15/22 10:02 Dose: 10 ml Sodium Chloride (Sodium Chloride 0.9% 10 Ml Flush Syringe) 10 ml IV PRN PRN PRN Reason: LINE FLUSH Physical Examination - Vital Signs Vital Signs: Vital Signs Temp Pulse Resp BP Pulse Ox 98.7 F 87 20 134/98 95 06/14/22 19:13 06/14/22 19:13 06/14/22 19:13 06/14/22 19:13 06/14/22 19:13 - Physical Exam Narrative exam: Gen: nad, well-nourished; Head: normocephalic; Eyes: no gaze deviation; no ptosis; ENT: normal vocalization; CVS: warm and well-perfused; Pulm: no respiratory distress; GI: appears non-distended; Ext: no cyanosis appreciated at distal extremities; Skin: no acute rash at distal extremities; Heme: no pathologic ecchymosis appreciated at distal extremities; Neuro: alert, oriented to name, age, month, year, surroundings, mild dysarthria, no aphasia, CN 2 - PERRL, visual [place] grossly intact, CN 3, 4, 6 - EOMI, CN 5 - facial sensation symmetric to light touch, CN 7 - facial movement decreased on the right, CN 8 - hearing grossly intact, CN 9, 10 - uvula midline, CN 11 symmetric shoulder movement, CN 12 - tongue midline; Motor - at least 4/5 at l eft exts, at least 3+/5 at right exts w/ mild drift of right arm; Sensory - light touch symmetric, Cerebellar - fnf /hts intact on the left and right fnf/hts difficulty due to weakness, Gait - deferred secondary to fall risk; NIHSS (1a.) Level of Consciousness:0 (1b.) LOC Questions:0 (1c.) LOC Commands:0 (2.) Best Gaze:0 (3.) Visual:0 (4.) Facial Palsy:1 (5a.) Motor Arm, Left:0 (5b.) Motor Arm, Righ1t: (6a.) Motor Leg, Left:0 (6b.) Motor Leg, Right:0 (7.) Limb Ataxia:0 (8.) Sensory:0 (9.) Best Language:0 (10.) Dysarthria:1 (11.) Extinction and Inattention:0 NIHSS Total Score: 3 Results - Laboratory Findings CBC and BMP: 06/15/22 04:25 06/15/22 04:25 Abnormal Lab Findings: Abnormal Labs 06/14/22 06/14/22 06/14/22 19:19 19:19 19:19 Lymph % (Auto) 35.6 H [place] % (Auto) Sodium 130 L Potassium 5.1 H Chloride 96.0 L Carbon Dioxide 21 L Glucose 240 H POC Glucose Alkaline Phosphatase 139 H Total Creatine Kinase 309 H Salicylates < 0.3 L Acetaminophen 06/14/22 06/15/22 06/15/22 19:19 04:25 04:25 Lymph % (Auto) 45.2 H [place] % (Auto) 9.2 H Sodium Potassium Chloride Carbon Dioxide Glucose 195 H POC Glucose Alkaline Phosphatase Total Creatine Kinase Salicylates Acetaminophen 5.0 L 06/15/22 06/15/22 06/15/22 06:20 07:30 11:25 Lymph % (Auto) [place] % (Auto) Sodium Potassium Chloride Carbon Dioxide Glucose POC Glucose 198 H 203 H 273 H Alkaline Phosphatase Total Creatine Kinase Salicylates Acetaminophen Assessment and Plan 52 yo male, right-handed, with dm, cva with residual right-sided weakness, tobacco abuse, who presents with noted elevated blood glucose levels. 1. Right-sided Weakness w/ Slurred Speech w/ Fatigue - likely secondary to rec rudescence of previous stroke symptoms; mri brain pending to confirm; pt/ot evaluation/monitoring if not back to baseline. 2. Hx of Completed Stroke - antiplatelet / statin therapy for a goal ldl of 70. 3. DM - aim for euglycemia. 4. If MR Julio C reveals no acute process, patient is cleared by Neurology. Mario Bustamante MD Neurology [id number]
[2022-06-15] MEDS ORDERED: LIPITOR 40 MG PO SCH (22:00)
[2022-06-16] MEDS: HEPARIN 5,000 UNIT/1 ML VIAL SUB-Q SCH (06:59)
[2022-06-16] MEDS: ASPIRIN 325 MG TAB PO SCH (09:19)
[2022-06-16] MEDS: INSULIN LISPRO 100 UNIT/ML SUB-Q SCH ×3 (09:19→13:07)
--- NOTE | 2022-06-16 09:19 | Discharge Summary ---
Providers - Providers Date of Admission: 06/14/22 21:45 Date of discharge: 06/16/22 Attending physician: NEAL CISNEROS 06/14/22 21:54 Consult to Physician [CONS] Routine Comment: Consulting Provider: YASMANY LEWIS Physician Instructions: Reason For Exam: Right sided weakness 06/14/22 21:55 Consult to Dietitian/Nutrition [CONS] Routine Physician Instructions: Reason For Exam: Reason for Consult: Nutrition Recommendations Reason for Consult: Diet education Occupational Therapy Evaluate and Treat [CONS] Routine Comment: Reason For Exam: Neuro deficits Physical Therapy Evaluation and Treat [CONS] Routine Comment: Reason For Exam: OUTPATIENT PT 06/14/22 21:59 Speech Therapy Evaluation and Treat [CONS] Routine Reason For Exam: swallow eval Primary care physician: RE[facility]LLER Hospitalization Reason for admission: CVA Condition: Good Hospital course: 52 yo male, right-handed, with dm, cva with residual right-sided weakness, tobacco abuse, who presents with noted elevated blood glucose levels. Notes that initially upon ED presentation he felt confused with generalized weakness with slurred speech and "really tired". Notes that he suffers the same set of symptoms whenever "my sugar is high" in the past. Notes improvement since admission. Neurology was consulted and reports that Right-sided Weakness w/ Slurred Speech w/ Fatigue - likely secondary to recrudescence of previous stroke symptoms. Physical therapy reports patient can discharge home with outpatient PT. neurology also recommends to continue antiplatelet and statin therapy. Patient will discharge home if MRI negative. Dedicated discharge time 32 minutes Disposition: 01 HOME / SELF CARE / HOMELESS Final Discharge Diagnosis (Prints w/discharge instructions): History of CVA with right-sided weakness, new CVA ruled out, diabetes mellitus type 2 Core Measure Documentation - Palliative Care Palliative Care/ Comfort Measures: Not Applicable - Core Measures Any of the following diagnoses?: none Exam - Constitutional Vitals: Temp Pulse Resp BP Pulse Ox 97.8 F 81 18 123/82 99 06/16/22 03:53 06/16/22 03:53 06/16/22 03:53 06/16/22 03:53 06/16/22 03:53 General appearance: Present: no acute distress, well-nourished - EENT Eyes: Present: PERRL ENT: hearing intact, clear oral mucosa - Neck Neck: Present: supple, normal ROM - Respiratory Respiratory effort: normal Respiratory: bilateral: CTA - Cardiovascular Heart Sounds: Present: S1 & S2. Absent: rub, click - Extremities Extremities: pulses symmetrical, No edema Peripheral Pulses: within normal limits - Abdominal General gastrointestinal: Present: soft, non-tender, non-distended, normal bowel sounds Male genitourinary: Present: normal - Integumentary Integumentary: Present: clear, warm, dry - Musculoskeletal Musculoskeletal: gait normal, strength equal bilaterally - Psychiatric Psychiatric: appropriate mood/affect, intact judgment & insight - Neurologic Neurologic: CNII-XII intact, moves all extremities Plan Activity: advance as tolerated Weight Bearing Status: Weight Bear as Tolerated Diet: low fat, low cholesterol, low salt, diabetic Special Instructions: physical therapy Follow up with: PRIMARY CARE,MD [Primary Care Provider] - 3-5 Days Prescriptions: Aspirin 325 mg PO QDAY #30 tablet Insulin Glargine [Lantus VIAL] 35 units SQ QAM 30 Days units AtorvaSTATin [Lipitor] 40 mg PO QHS #30 tablet
[2022-06-16 09:40] LABS: Basophils % (Auto) 0.5 % (0.0-1.8); Eosinophils # (Auto) 0.1 K/mm3 (0.0-0.4); Eosinophils % (Auto) 1.4 % (0.0-4.3); Hematocrit 43.4 % (35.5-45.6); Hemoglobin 13.9 gm/dl (11.8-15.2); Lymphocytes # (Auto) 2.5 K/mm3 (1.2-5.4); Lymphocytes % (Auto) 46.9 % (13.4-35.0); Mean Corpuscular HGB Conc 32 % (32-34); Mean Corpuscular Volume 88 fl (84-94); Monocytes # (Auto) 0.5 K/mm3 (0.0-0.8); Monocytes % (Auto) 8.4 % (0.0-7.3); Platelet Count 176 K/mm3 (140-440); Red Blood Count 4.92 M/mm3 (3.65-5.03); Red Cell Distribution Width 13.7 % (13.2-15.2)
[2022-06-16] MEDS ORDERED: LORazepam 1 MG TAB PO NR (09:42)
[2022-06-16 09:53] VITALS: BP 121/82
[2022-06-16 09:56] LABS: BUN/Creatinine Ratio 14; Blood Urea Nitrogen 13 mg/dL (9-20); Calcium 8.7 mg/dL (8.4-10.2); Hemolysis Index 3
[2022-06-16] MEDS ORDERED: INSULIN GLARGINE 100 UNITS/ML SUB-Q SCH (10:00)
[2022-06-16] MEDS ORDERED: PNEUMOCOCCAL 23 Valent 0.5 ML VIAL IM ONE (12:00)
== END 2022-06-16 13:30 | disposition home or self-care (01) | DRG 638 ==
LOC: ED 18:31 → 4A 21:45 → OBSVTOIN 21:45 → 4A 23:10
PROVIDERS: ADMIT Internal Medicine Geriatric Medicine; ATTEND Hospitalist
DX: E11.65 Type 2 diabetes mellitus with hyperglycemia (principal); I69.351 Hemiplegia and hemiparesis following cerebral infarction affecting right dominant side; R47.81 Slurred speech; E66.01 Morbid (severe) obesity due to excess calories; I10 Essential (primary) hypertension; Z68.37 Body mass index [BMI] 37.0-37.9, adult
CPT/HCPCS: 36415; 70450; 70496; 70498; 80048; 80053; 80320; 82550; 82553; 82962; 84443; 84484; 85025; 85610; 85670; 85730; 93005; 93306; 93880; 99406; G0378; Q9967; C8929; G0480; J1644; J1815; J7040